=== PATIENT | male | born 1970 | race Two or more races ===

== ENCOUNTER 2024-03-26 05:35 | Day surgery (SDC) | payer OTHER ==
[2024-03-26] MEDS ORDERED: METOPROLOL SUC100 MG PO (06:41)
[2024-03-26] MEDS ORDERED: SIMVASTATIN40 MG PO (06:42)
[2024-03-26] MEDS ORDERED: NALOXONE H0.4 MG/12 IM (06:42)
[2024-03-26] MEDS ORDERED: AMLODIPINE BESY10 MG PO (06:42)
[2024-03-26] MEDS ORDERED: MIDAZOLAM HCL 2 MG/2 ML VIAL IV ONE ×2 (08:15→09:30)
[2024-03-26] MEDS ORDERED: fentaNYL CITRATE 50 MCG/ML AMPUL IV PUSH ONE ×2 (08:15→09:30)
[2024-03-26] MEDS ORDERED: FLUMAZENIL 0.5 MG/5 ML ML IV STA (09:25)
[2024-03-26] MEDS ORDERED: DIPHENHYDRAMINE HCL 50 MG/ML VIAL 1ML IV ONE (09:30)
== END 2024-03-26 11:05 | disposition home or self-care (01) ==
LOC: AMB-ENDOS 05:35
PROVIDERS: ATTEND Colon & Rectal Surgery
DX: K63.5 Polyp of colon (principal); K57.30 Diverticulosis of large intestine without perforation or abscess without bleeding

== ENCOUNTER 2024-03-26 06:28 | Emergency (ER) | payer OTHER ==
[~2024-03-26] VITALS: Ht 172.7 cm; Wt 108.9 kg
[2024-03-26] MEDS ORDERED: METOPROLOL SUC100 MG PO (06:41)
[2024-03-26] MEDS ORDERED: NALOXONE H0.4 MG/12 IM (06:42)
[2024-03-26] MEDS ORDERED: AMLODIPINE BESY10 MG PO (06:42)
[2024-03-26] MEDS ORDERED: SIMVASTATIN40 MG PO (06:42)
== END 2024-03-26 07:15 | disposition home or self-care (01) ==
LOC: ER 06:30
DX: K21.9 Gastro-esophageal reflux disease without esophagitis (principal); R07.89 Other chest pain